=== PATIENT | male | born 2005 | race Caucasian/White ===

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

== ENCOUNTER 2024-05-09 20:17 | Emergency (ER) | payer OTHER ==
[~2024-05-09] VITALS: Ht 182.9 cm; Wt 93.4 kg
[~2024-05-09 20:17] MED LIST changes: +IBUP-1957 PO
[2024-05-09 21:01] VITALS: BP 130/70; TEMP 98.2; O2SAT 100
[2024-05-09] MEDS ORDERED: CIPR-262 PO (22:26)
[2024-05-09] MEDS ORDERED: METR500T PO (22:26)
== END 2024-05-09 22:31 | disposition home or self-care (01) ==
LOC: ER 20:24
DX: K52.9 Noninfective gastroenteritis and colitis, unspecified (principal)